=== PATIENT | male | born 1975 | race African-American/Black ===

== ENCOUNTER 2017-03-20 15:23 | Emergency (ER) | payer OTHER ==
[2017-03-20 15:45] VITALS: TEMP 98.3; BMI 44.9
--- NOTE | 2017-03-20 16:30 | PDOC ---
History of Present Illness - General Chief Complaint: Seizure Stated Complaint: SEIZURE Time Seen by Provider: 03/20/17 16:08 - History of Present Illness Initial Comments: 03/20/17 16:48 41M w/ hx of one seizure of uncertain etiology presenting from his work after staff reported he was having a seizure. Pt reports being in his [employer] until about 2pm when he was found on the floor having a seizure. The next thing the pt remembers is being in the ambulance. He does not know if his colleagues stated that he was shaking during the event. The pt denies having any bowel or urine incontinence, but reports that he had tongue biting and hit his forehead on the fall. Pt reports that he hasn't eaten anything all day; he just drank some juice and water. He had a similar episode about a year ago during work, but the cause was never discovered. The pt was supposed to f/u with neurology for an MRI, but he never did. 03/20/17 17:07 Past History - Past Medical History Allergies/Adverse Reactions: Allergies Allergy/AdvReac Type Severity Reaction Status Date / Time No Known Allergies Allergy Verified 03/20/17 15:42 Home Medications: Ambulatory Orders Levetiracetam 1,000 mg PO BID #60 tablet 03/20/17 Seizures: Yes Comment:: 03/20/17 17:00 PMH: HTN PSH: none Meds: amlodipine 10mg Allergies: NKDA Fam Hx: parkinson's in father Social Hx: social drinker, 2.5 pack year smoking hx, no drugs - Psycho/Social/Smoking Cessation Hx Anxiety: No Suicidal Ideation: No Smoking History: Never smoked Have you smoked in the past 12 months: No Number of Cigarettes Smoked Daily: 4 Information on smoking cessation initiated: No Hx Alcohol Use: No Drug/Substance Use Hx: No Substance Use Type: None Review of Systems - Review of Systems Comments:: 03/20/17 17:03 GENERAL: No fever, night sweats, or weakness. HEAD, EYES, EARS, NOSE AND THROAT: No change in vision, ear pain, or sore throat CARDIOVASCULAR: No chest pain or palpitations RESPIRATORY: No cough, wheezing, or hemoptysis. GASTROINTESTINAL: No nausea, vomiting, diarrhea, constipation, or blood in the stool. GENITOURINARY: No dysuria, frequency, or urgency MUSCULOSKELETAL: +head swelling and pain SKIN: No rashes or pruritis ENDOCRINE: No increased thirst. No abnormal weight change NEUROLOGIC: + headache, no dizziness or change in strength/sensation. *Physical Exam - Vital Signs Last Vital Signs Temp Pulse Resp BP Pulse Ox 98.3 F 106 H 18 140/75 100 03/20/17 15:33 03/20/17 15:33 03/20/17 15:33 03/20/17 15:33 03/20/17 15:33 - Physical Exam Comments: 03/20/17 17:05 GENERAL: Awake, alert, and fully oriented, in no acute distress HEAD: large swelling on frontal skull HEENT: PERRLA, EOMI, NECK: Normal ROM, supple, no lymphadenopathy, JVD, or masses HEART: tachycardic, normal rhythm, normal S1 and S2, no murmurs, rubs or gallops , peripheral pulses normal and equal bilaterally. LUNGS: CTAB, no wheezing, no rales ABDOMEN: Soft, nontender, nondistended, normoactive bowel sounds. No guarding, no rebound. No masses EXTREMITIES: Normal range of motion, no edema. SKIN: diaphoretic, no rashes NEUROLOGICAL: Cranial nerves II through XII grossly intact. Normal speech, normal gait, no focal sensorimotor deficits ED Treatment Course - LABORATORY CBC & Chemistry Diagram: 03/20/17 16:34 03/20/17 16:34 Medical Decision Making - Medical Decision Making 03/20/17 17:07 41M w/ hx of one seizure of uncertain etiology presenting from his work after staff reported he was having a seizure. +tongue biting, post-ictal state, head swelling s/p fall- likely due a seizure. Rule out syncope as etiology and rule out intracranial bleed or skull fracture. -head CT: no intracranial bleeding or skull fracture -BMP: wnl -CBC: wnl 03/20/17 18:11 03/20/17 18:18 *DC/Admit/Observation/Transfer Diagnosis at time of Disposition: Seizure - Discharge Dispostion Admit: No - Prescriptions Prescriptions: Levetiracetam 1,000 mg PO BID #60 tablet - Patient Instructions Printed Discharge Instructions: Seizure Disorder -- Adult Additional Instructions: From the history and physical, it appears that you had another seizure. Your labwork does not show a cause for it, and your CT of your head shows no intrcranial bleeding or fracture. Please follow up with neurology (Dr. Wheeler- [phone]) isaias to determine the etiology of your seizures as well as determine an optimal medication regimen. - Attestations Physician Attestion: 03/20/17 18:24 I, Dr. Anmol Queen, attest that this document has been prepared under my direction and personally reviewed by me in its entirety. I further attest, that it accurately reflects all work, treatment, procedures and medical decision -making performed by me.
[2017-03-20 16:51] LABS: BASOPHIL 0.4 % (0-2.0); EOSINOPHIL 0.6 % (0-4.5); MCH 32.1 pg (25.7-33.7); MCHC 33.6 g/dl (32.0-35.9); MEAN CELL VOLUME 95.5 fl (80-96); MEAN PLT VOLUME 8.6 fl (7.5-11.1); NEUTROPHILS 72.9 % (42.8-82.8); PLATELET COUNT 218 K/MM3 (134-434); RDW 13.3 % (11.9-15.9); WHITE BLOOD COUNT 8.2 K/mm3 (4.0-10.0)
[2017-03-20] MEDS ORDERED: levETIRAcetam 500 MG/5 ML INJECTION VIAL IVPB ONE ×3 (17:11→17:44)
[2017-03-20 17:23] LABS: ALBUMIN 3.8 g/dl (3.4-5.0); ANION GAP 7 (8-16); BILIRUBIN,TOTAL 0.7 mg/dL (0.2-1.0); CO2 25 mmol/L (21-32); GLUCOSE,RANDOM 98 mg/dL (74-106); SGPT/ALT 35 U/L (12-78); TOT PROT 7.6 g/dl (6.4-8.2)
[2017-03-20 17:24] LABS: ALK PHOS 82 U/L (45-117)
[2017-03-20 17:27] LABS: SGOT/AST 20 U/L (15-37)
--- NOTE | 2017-03-20 17:37 | PDOC ---
Attending Attestation - Resident Resident Name: Anmol Queen - HPI HPI: 03/20/17 17:35 41-year-old male had a witnessed tonic-clonic seizure and sustained polytrauma. He should postictal episode and presents to the emergency department with a 4 cm mid forehead hematoma. Currently, he is alert and conversant Patient was seen in this ER on November 2015 for the same complaint seizure. At that time had a CAT scan and was negative for any acute intracranial pathology. He was supposed to follow-up with Dr. Uribe. I did go for one office visit but didn't follow up after that. He is currently on no antiseizure medication. I spoke with the neurologist, Dr. Hutchinson patient will be loaded with 1500 mg of Keppra and started on pain medication for 1000 mg of Keppra twice daily. If his labs are within normal limits and his CAT scan is negative, the plan is for him to see Dr. Wheeler [address] tomorrow in the office 03/20/17 17:42 - Physicial Exam PE: 03/20/17 41 yo male BIBA w large frontal forehead hematoma HEAD +4 cm mid frontal forehead hematoma eyes susy eomi Oral exam + tongue lac neck no cervical vertebral tenderness - Medical Decision Making 03/20/17 20:58 seizures/pt to followup with neurologist Dr Wheeler and start his keppra 100mg BID, go to [address] for neuro tomorrow
[2017-03-20 19:02] VITALS: BP 161/90; PULSE 92
--- NOTE | 2017-03-22 14:49 | EKG ---
Test Reason : Blood Pressure : / mmHG Vent. Rate : 090 BPM Atrial Rate : 090 BPM P-R Int : 140 ms QRS Dur : 108 ms QT Int : 368 ms P-R-T Axes : 046 020 050 degrees QTc Int : 450 ms NORMAL SINUS RHYTHM POSSIBLE LEFT ATRIAL ENLARGEMENT LATERAL INFARCT , AGE UNDETERMINED ABNORMAL ECG WHEN COMPARED WITH ECG OF 16-NOV-2015 16:26, LATERAL INFARCT IS NOW PRESENT Confirmed by JASON MARTIN MD ([id number]) on 03/22/2017 2:49:12 PM Referred By: Confirmed By:JASON MARTIN MD
== END 2017-03-20 19:04 | disposition home or self-care (01) ==
LOC: JER 15:23
PROC: 3E033GC Introduction of Other Therapeutic Substance into Peripheral Vein, Percutaneous Approach (ICD-10-PCS; principal; 2017-03-20)
DX: R56.9 Unspecified convulsions (principal); S00.83XA Contusion of other part of head, initial encounter; W18.39XA Other fall on same level, initial encounter; Y93.89 Activity, other specified; Y92.9 Unspecified place or not applicable; I10 Essential (primary) hypertension
CPT/HCPCS: 36415; 70450-TC; 80053; 85025; 93005; 93010; 99283-25